=== PATIENT | female | born 1960 | race Caucasian/White ===

== ENCOUNTER 2020-04-11 06:21 | Observation (INO) ==
--- NOTE | 2020-03-28 16:04 | PAT Medication Instructions ---
Medication Instructions Date of Service March 28, 2020 Home Medications albuterol sulfate 2 puff INHALATION QID PRN biotin 10,000 mcg PO QPM cholecalciferol (vitamin D3) [Vitamin D3] 25 mcg PO QAM cyclobenzaprine [Flexeril] 10 mg PO TID diclofenac sodium 2 g TOPICAL TID duloxetine [Cymbalta] 60 mg PO QAM famotidine 20 mg PO BID gabapentin 800 mg PO TID levothyroxine 25 mcg PO QAM oxycodone 15 mg PO Q4H PRN sennosides-docusate sodium [Stool Softener-Laxative] 100 tab PO BID STOP taking 24 hours before surgery diclofenac sodium 2 g TOPICAL TID DO NOT take the morning of surgery cholecalciferol (vitamin D3) [Vitamin D3] 25 mcg PO QAM cyclobenzaprine [Flexeril] 10 mg PO TID sennosides-docusate sodium [Stool Softener-Laxative] 100 tab PO BID Take morning of surgery With a small sip of water, OTHERWISE NOTHING TO EAT OR DRINK AFTER MIDNIGHT: albuterol sulfate 2 puff INHALATION QID PRN (use if needed; please bring with you to hospital day of surgery if possible) duloxetine [Cymbalta] 60 mg PO QAM famotidine 20 mg PO BID gabapentin 800 mg PO TID levothyroxine 25 mcg PO QAM oxycodone 15 mg PO Q4H PRN (okay to take up to 4 hours prior to surgery if needed) Take evening before surgery albuterol sulfate 2 puff INHALATION QID PRN (if needed) biotin 10,000 mcg PO QPM cyclobenzaprine [Flexeril] 10 mg PO TID famotidine 20 mg PO BID gabapentin 800 mg PO TID oxycodone 15 mg PO Q4H PRN (if needed) sennosides-docusate sodium [Stool Softener-Laxative] 100 tab PO BID Other Notes If you have any questions please call us at [phone] or [phone] or [phone] or [phone]
--- NOTE | 2020-03-29 13:54 | Anesthesiology Consultation ---
Date of Service March 29, 2020 Assessment & Plan (1) Encounter for pre-operative examination: - Per assessment on 03/17: Travel screen negative. No known COVID-19 positive contacts or current COVID-19 related symptoms. Surgeon arranging preop COVID testing (scheduled 04/06; [facility]). Awaiting results. - Hx PONV: scope patch ordered for AM DOS Chart Review Chart Review: Acceptable Risk for Surgery and Patient seen in Pre Admission Testing Teaching & Discussion Pre-Anesthesia Teaching/Discussion Notes: Instructed NPO after midnight before surgery,except medications with 15 cc of water. Medication instructions p rovided according to the PAT guidelines. History Surgery Operation Date: 04/11/20 10:05 Proposed Procedures p C6-C7 Anterior Cervical Discectomy and Fusion, Spinal Cord Monitoring - Joss Kenney DO Height/Weight Height: 5 ft 8 in Weight: 101.1 kg Allergies Allergy/AdvReac Type Severity Reaction Status Date / Time oxytetracycline Allergy Unknown as child- Verified 03/29/20 13:54 [From Terramycin] unknown reaction tetracycline Allergy Unknown unknown Verified 03/29/20 13:54 Medications Home Medications Medication Instructions Recorded Confirmed Last Taken albuterol sulfate 2 puff INHALATION QID PRN 03/17/20 03/17/20 Unknown biotin 10,000 mcg PO QPM 03/17/20 03/17/20 Unknown cholecalciferol (vitamin D3) 25 mcg PO QAM 03/17/20 03/17/20 Unknown [Vitamin D3] cyclobenzaprine [Flexeril] 10 mg PO TID 03/17/20 03/17/20 Unknown diclofenac sodium 2 g TOPICAL TID 03/17/20 03/17/20 Unknown duloxetine [Cymbalta] 60 mg PO QAM 03/17/20 03/17/20 Unknown famotidine 20 mg PO BID 03/17/20 03/17/20 Unknown gabapentin 800 mg PO TID 03/17/20 03/17/20 Unknown levothyroxine 25 mcg PO QAM 03/17/20 03/17/20 Unknown oxycodone 15 mg PO Q4H PRN 03/17/20 03/17/20 Unknown sennosides-docusate sodium [Stool 100 tab PO BID 03/17/20 03/17/20 Unknown Softener-Laxative] Past Medical History Medical History (Updated 03/29/20 @ 14:19 by Vita Bach) Chronic back pain lumbar Fibromyalgia GERD (gastroesophageal reflux disease) History of bronchitis reason for inhaler rx per patient Hypothyroidism Obesity Osteoarthritis Exercise / Class Metabolic Activity II 4-5 Yardwork/Stairs/Walk up hill (one flight of stairs (no chest pain, no sob)) Past Family History Family History Mother Family history of diabetes mellitus Brother Family history of diabetes mellitus Sister Family history of diabetes mellitus Sister Family history of diabetes mellitus Past Surgical History Surgical History (Updated 03/29/20 @ 14:19 by Vita Bach) H/O elbow surgery RIGHT X3-"BENIGN" TUMOR/COMPRESSED NERVE H/O neck surgery + "SPACERS" History of ankle surgery RIGHT FOR LIGAMENT REPAIR History of dilatation and curettage X3 Past Anesthesia History No Hx of Anesthesia Complications (except PONV ) and No Family Hx of Anesthesia Complications History of PONV No Hx of Motion Sickness and History of PONV (significant improvement when scope patch used) STOP BANG Total 2 Social History Smoking Status: Former smoker Do You Dip or Chew Tobacco: No Smoking End Date: Quit 7 years ago (hx tobacco x 20 years) Hx Alcohol Use: Yes Alcohol type: wine alcohol intake frequency: a few times a month Hx Substance Use: No Review of Systems Patient denies chest pain, shortness of breath, dyspnea on exertion, fever, chills, cough, wheezing, palpitations. Physical Exam Vital Signs VITALS BP 122/82 P 81 TEMP 98.2 SP02 97%RA RESP 16 PHYSICAL Decreased cervical extension 2/2 cervicalgia/radiculopathy Full TMJ range of motion. TMD 3.5 finger breaths Mallampati Score 1 Dentition: lower denture secured with implants, upper denture Lungs: clear throughout to auscultation Cardiac: regular rate and rhythm, no murmurs noted Spine: normal Carotid arteries: negative bruit Extremities: no edema Testing Laboratory Results 03/29/20 14:14 03/29/20 14:14 PT 10.7 Seconds (9.0-12.0) 03/29/20 14:14 INR 1.0 (0.9-1.1) 03/29/20 14:14 APTT 29.9 Seconds (21.0-31.0) 03/29/20 14:14 Urine Color Yellow 03/29/20 14:14 Urine Appearance Clear (Clear) 03/29/20 14:14 Urine pH 6.5 (4.5-7.5) 03/29/20 14:14 Ur Specific [place] 1.004 (1.000-1.030) 03/29/20 14:14 Urine Protein Negative (Negative) 03/29/20 14:14 Urine Glucose (UA) Negative (Negative) 03/29/20 14:14 Urine Ketones Negative (Negative) 03/29/20 14:14 Urine Nitrite Negative (Negative) 03/29/20 14:14 Ur Leukocyte Esterase Negative (Negative) 03/29/20 14:14 Blood Type A Positive 03/29/20 14:14 Antibody Screen NEGATIVE 03/29/20 14:14 Electrocardiogram Date: 03/29/20 Findings: + NSR @ (75) Chest X-Ray Date: 03/29/20 Findings: + NAD
[2020-03-29 14:38] LABS: Basophils # (auto) 0.01 K/uL (0-0.2); Basophils % (auto) 0.2 %; Eosinophils # (auto) 0.25 K/uL (0-0.5); Eosinophils % (auto) 4.1 %; Hematocrit (blood only) 42.5 % (37-47); Hemoglobin 14.1 g/dL (12.0-16.0); Lymphocytes # (auto) 2.31 K/uL (1.2-3.4); Lymphocytes % (auto) 37.4 %; Mean Corpuscular Hemoglobin 30.3 pg (25-34); Mean Corpuscular Hgb Conc 33.2 g/dL (32-36); Mean Corpuscular Volume 91.4 fL (80-100); Mean Platelet Volume 11.5 fL (7.4-10.4); Monocytes # (auto) 0.32 K/uL (0.11-0.59); Monocytes % (auto) 5.2 %; Neutrophils # (auto) 3.28 K/uL (1.4-6.5); Neutrophils % (auto) 53.1 %; Platelet Count 208 K/uL (130-400); RDW Coefficient of Variation 13.5 % (11.5-14.5); RDW Standard Deviation 44.6 fL (36.4-46.3); Red Blood Count 4.65 M/uL (4.2-5.4); White Blood Count 6.17 K/uL (4.8-10.8)
[2020-03-29 14:44] LABS: Appearance Urine Clear (Clear); Bilirubin Urine Negative (Negative); Blood Urine Negative (Negative); Color Urine Yellow; Glucose Urine UA Negative (Negative); Ketones Urine Negative (Negative); Leukocyte Esterase Urine Negative (Negative); Nitrite Urine Negative (Negative); Protein Urine Negative (Negative); Specific Gravity Urine 1.004 (1.000-1.030); Urobilinogen Urine Negative (Negative); pH Urine 6.5 (4.5-7.5)
--- NOTE | 2020-03-29 14:47 | XRay Report ---
XR chest Pre-admission PA/Lat HISTORY: Preop. COMPARISON: None. FINDINGS: The lungs are clear. Cardiac silhouette is normal in size. No pleural effusions. No pneumot horax. IMPRESSION: No acute process. ACT 112: Negative or not required by law. Electronically signed by: Mekhi Hernandez M.D. 03/29/2020 2:46 PM
[2020-03-29 14:51] LABS: Partial Thromboplastin Ratio 1.1; Partial Thromboplastin Time 29.9 Seconds (21.0-31.0); Prothrombin Time 10.7 Seconds (9.0-12.0)
[2020-03-29 15:30] LABS: BUN Creatinine Ratio 12.2 (10-20); Calcium 9.3 mg/dl (8.5-10.1); Creatinine Clr Calc Pharmacy 87.7 ml/min; Est GFR (African American) 85.1; Est GFR (Non-African American) 73.4; Potassium 4.2 mmol/L (3.5-5.1)
--- NOTE | 2020-03-30 06:10 | Electrocardiogram Report ---
Test Reason : Blood Pressure : / mmHG Vent. Rate : 075 BPM Atrial Rate : 075 BPM P-R Int : 142 ms QRS Dur : 088 ms QT Int : 392 ms P-R-T Axes : 067 029 050 degrees QTc Int : 437 ms Normal sinus rhythm Normal ECG No previous ECGs available Confirmed by Julio C Cadet ([id number]) on 03/30/2020 6:09:53 AM Referred By: Joss Kenney Confirmed By:Julio C Cadet
[~2020-04-11 06:21] MED LIST: ACETAMINOPHEN 500 MG TAB PO SCH; CEFAZOLIN 2000MG 2,000 MG/15 ML SYR IV SCH; CeleBREX 200 MG CAP PO SCH; GABAPENTIN 600 MG DOSE PO SCH; LR 15ML/HR IV SCH
[2020-04-11] MEDS ORDERED: HYDROmorphone INJ 2 MG/ML SYR/VIAL ONE (06:52)
[2020-04-11] MEDS ORDERED: MIDAZOLAM HCL 1 MG/ML 2ML VIAL ONE (06:52)
[2020-04-11] MEDS ORDERED: fentaNYL citrate 100 MCG/2 ML VIAL ONE (06:52)
[2020-04-11] MEDS ORDERED: BACITRACIN INJ 50,000 UNIT VIAL ONE (06:57)
[2020-04-11] MEDS ORDERED: ePHEDrine sulfate 50 MG/ML AMP IV PRN (07:19)
[2020-04-11] MEDS ORDERED: ATROPINE SULFATE 0.1 MG/ML 10ML SYR IV PRN (07:19)
[2020-04-11] MEDS ORDERED: ONDANSETRON INJ 2 MG/ML 2 ML VIAL IV PRN ×2 (07:19→10:50)
[2020-04-11] MEDS ORDERED: PROMETHAZINE HCL 6.25 MG in SODIUM CHLORIDE 0.9% 50 ML IV PRN (07:19)
--- NOTE | 2020-04-11 07:34 | History & Physical Bridge Note ---
Date of Service April 11, 2020 History & Physical Bridge Note I have examined the patient, reviewed the History & Physical and in the interval since the performance of the History & Physical I have noted the following changes of clinical significance: no changes noted
--- NOTE | 2020-04-11 07:35 | History & Physical Report ---
Date of Service April 11, 2020 Assessment & Plan (1) Cervical stenosis of spinal canal: Admission and Anticipated Discharge Date Admission Date: C6-C7 anterior cervical discectomy and fusion History of Present Illness Chief Complaint: Neck and arm pain Primary Care Provider: Benny España This is a 59-year-old female who presents with chronic persistent neck and arm pain. After failing course of nonoperative care she is here for surgical intervention. Allergies Allergy/AdvReac Type Severity Reaction Status Date / Time oxytetracycline Allergy Unknown as child- Verified 03/29/20 13:54 [From Terramycin] unknown reaction tetracycline Allergy Unknown unknown Verified 03/29/20 13:54 Home Medications Home Medications Medication Instructions Recorded Confirmed Type albuterol sulfate 2 puff INHALATION QID PRN 03/17/20 04/11/20 History biotin 10,000 mcg PO QPM 03/17/20 04/11/20 History cholecalciferol (vitamin D3) 25 mcg PO QAM 03/17/20 04/11/20 History [Vitamin D3] cyclobenzaprine [Flexeril] 10 mg PO TID 03/17/20 04/11/20 History diclofenac sodium 2 g TOPICAL TID 03/17/20 04/11/20 History duloxetine [Cymbalta] 60 mg PO QAM 03/17/20 04/11/20 History famotidine 20 mg PO BID 03/17/20 04/11/20 History gabapentin 800 mg PO TID 03/17/20 04/11/20 History levothyroxine 25 mcg PO QAM 03/17/20 04/11/20 History oxycodone 15 mg PO Q4H PRN 03/17/20 04/11/20 History sennosides-docusate sodium [Stool 100 tab PO BID 03/17/20 04/11/20 History Softener-Laxative] Past Med/Surg History Medical History (Updated 04/11/20 @ 07:34 by Joss Kenney DO) Chronic back pain lumbar Fibromyalgia GERD (gastroesophageal reflux disease) History of bronchitis reason for inhaler rx per patient Hypothyroidism Obesity Osteoarthritis Surgical History H/O elbow surgery RIGHT X3-"BENIGN" TUMOR/COMPRESSED NERVE H/O neck surgery + "SPACERS" History of ankle surgery RIGHT FOR LIGAMENT REPAIR History of dilatation and curettage X3 Family History Mother Family history of diabetes mellitus Brother Family history of diabetes mellitus Sister Family history of diabetes mellitus Sister Family history of diabetes mellitus Social History Smoking Status: Former smoker Smoking End Date: Quit 7 years ago (hx tobacco x 20 years); Second Hand Exposure: Yes (FATHER SMOKED); Do You Dip or Chew Tobacco: No; Hx Alcohol Use: Yes Alcohol type: wine Hx Substance Use: No Preferred Language: Burmese Communication Ability: Effective 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 Heart regular rate and rhythm. Lungs clear to auscultation. Results & Data ([facility]) Vital Signs (Past 12 Hours) Vital Signs Temp Pulse Resp BP Pulse Ox 04/11/20 06:56 36.9 C 89 20 129/90 97
[2020-04-11] MEDS ORDERED: LARYING-O-JET KIT (LTA) ONE (08:22)
--- NOTE | 2020-04-11 09:09 | Operative Report ---
Post Operative Report Pre & Post Diagnosis Operation Date: 04/11/20 07:45 Pre-Op Diagnosis: Spinal Stenosis, Cervical Region Post-Op Diagnosis: Spinal Stenosis, Cervical Region I identified the patient and participated in the time-out.: Yes Procedure Operation Date: 04/11/20 07:45 Actual Procedures #1 anterior cervical discectomy with bilateral foraminotomies C6-C7. #2 anterior cervical arthrodesis C6-C7. #3 placement of 8 mm spiral cage filled with DBM at C6-C7. #4 application of 5 complete screws across C6-C7. Surgeon Joss Kenney, Dehydrogenation Converter Operator Mary Phoenix Estimated Blood Loss 25 Findings See Below The patient is 5 foot 8 inches tall weighing over 99 kg with a BMI in excess of 33. The patient's body habitus did create significant technical difficulty requiring additional provisions with positioning and exposure. This at least 25% increase to the operative time. Specimens None Indications This is a 59-year-old female who presents with mother diagnosis after failed extensive course of nonoperative care is here for the above-mentioned procedure. Description of Procedure Patient was met with identified informed consent obtained. Patient was then taken to the operative suite underwent ablation placed in a supine position injectable with a Reina head refrigeration engineer. All bony promises well-padded eyes inspected to ensure no external pressure placed upon up at this point the anterior cervical spine was prepped and draped in normal sterile fashion. Sharp dissection with the assistance of Bovie cartilage performed down to and exposing the anterior cervical spine at C6 and C7. Self-retaining retractors placed. And performed a complete discectomy of C6-7 out to the uncovertebral joints bilaterally. [place] distraction pins were utilized to assist in visualization. I did remove all posterior annular fibers longitudinal ligament performed bilateral foraminotomies. The endplates were then burred to subcortical bleeding bone and an 8 mm spiral cage filled with DBM tapped in position. Distracting apparatus was removed and all anterior osteophytes burred to a smooth cortical surface. For completeness was applied with the assistance of fluoroscopy. The incision was then copiously irrigated explored to ensure no damage to surrounding structures of any bleeding. 10 round EDU drain inserted. The incision was then closed with 2-0 Vicryl in the fascia and a 4 Monocryl for final skin closure. Steri-Strips sterile dressings placed. Patient would continue to PACU stable condition. Please note spinal cord monitoring was utilized at the procedure no changes noted. Audrey Phoenix was present throughout the entire surgery involved in patient positioning complex portions of the surgery and final skin closure. I attest to the content of the Intraoperative Record and any orders documented therein. Any exceptions are noted below.
[2020-04-11] MEDS ORDERED: ROCURONIUM BROMIDE 10 MG/ML 5 ML VIAL IV ONE (09:24)
[2020-04-11] MEDS ORDERED: DEXAMETHASONE SOD INJ 4 MG/ML VIAL ONE (09:24)
[2020-04-11] MEDS ORDERED: ONDANSETRON INJ 2 MG/ML 2 ML VIAL ONE (09:24)
[2020-04-11] MEDS ORDERED: PROPOFOL IV EMULSION 10 MG/ML 20 ML VIAL IV ONE (09:24)
[2020-04-11] MEDS ORDERED: SUCCINYLCHOLINE CHLORIDE 20 MG/ML 10 ML VIAL IV ONE (09:24)
[2020-04-11] MEDS: fentaNYL citrate 100 MCG/2 ML VIAL IV PRN ×2 (09:38→09:43)
--- NOTE | 2020-04-11 09:48 | Fluoroscopy Report ---
FL cervical 2-3V CLINICAL HISTORY: ACDF C6-7 COMPARISON STUDY: None FLUOROSCOPY TIME: 10 seconds. NUMBER OF FLUOROSCOPIC IMAGES: 3 FINDINGS: 3 intraprocedural fluoroscopic spot images are provided for interpretation. There is eviden ce for prior C4-5 and C5-C6 discectomies interbody fusions. There is evidence for a C6-7 anterior cer vical discectomy and fusion with an anterior metallic plate and screws. IMPRESSION: Postsurgical changes as described above. ACT 112: Negative or not required by law. Electronically signed by: Mike Camargo M.D. 04/11/2020 9:47 AM
[2020-04-11] MEDS ORDERED: NEOSTIGMINE METHYLSULFATE 1 MG/ML 10ML VIAL ONE (10:15)
[2020-04-11] MEDS ORDERED: GLYCOPYRROLATE 0.2 MG/ML VIAL ONE (10:15)
--- NOTE | 2020-04-11 10:25 | Anesthesiology Progress Note ---
Date of Service April 11, 2020 Anesthesia Post Procedure Vital Signs Vital Signs: Temp Pulse Pulse Resp BP BP Pulse Ox 04/11/20 10:20 90 16 127/87 97 04/11/20 10:10 81 16 128/88 97 04/11/20 10:00 87 18 118/75 100 04/11/20 09:50 91 H 18 134/93 99 04/11/20 09:40 91 H 18 141/86 H 99 04/11/20 09:30 90 16 126/98 98 04/11/20 09:24 36.1 C L 83 16 133/95 99 04/11/20 06:56 36.9 C 89 20 129/90 97 Pain Intensity Left Arm: Pain Intensity: 6 Posterior Head: Pain Intensity: 6 Transfer of Care Handoff Completed per policy Notes Mental Status: alert / awake / arousable Patient Amnestic to Procedure: Yes Nausea / Vomiting: adequately controlled Pain: adequately controlled Airway Patency, RR, SpO2: stable & adequate BP & HR: stable & adequate Hydration State: stable & adequate Anesthetic Complications: no major complications apparent
[2020-04-11] MEDS ORDERED: ACETAMINOPHEN 500 MG TAB PO PRN (10:50)
[2020-04-11] MEDS ORDERED: ALUMINUM/MAGNESIUM SUSP 30 ML UDC PO PRN (10:50)
[2020-04-11] MEDS ORDERED: ACETAMINOPHEN 1,000 MG/100 ML VIAL IV PRN (10:50)
[2020-04-11] MEDS ORDERED: DEXAMETHASONE SOD PHOSPHATE 8 MG in SYRINGE 0 ML IV PRN (10:50)
[2020-04-11] MEDS ORDERED: ALBUTEROL HFA 8 GM INHALER INH PRN (10:50)
[2020-04-11] MEDS ORDERED: PROMETHAZINE HCL 12.5 MG in SODIUM CHLORIDE 0.9% 50 ML IV PRN (10:50)
[2020-04-11] MEDS ORDERED: FAMOTIDINE 20 MG TAB PO PRN (10:50)
[2020-04-11] MEDS ORDERED: MAGNESIUM HYDROXIDE SUSP 30 ML UDC PO PRN (10:50)
[2020-04-11] MEDS ORDERED: RACEPINEPHRINE 2.25% NEBU SOLN 0.5 ML VIAL INH PRN (10:50)
[2020-04-11] MEDS ORDERED: HYDROmorphone INJ 0.5 MG/0.5 ML SYR IV PRN (10:50)
[2020-04-11] MEDS ORDERED: NALOXONE HCL 0.4 MG/1 ML VIAL/CARP IV PRN (10:50)
[2020-04-11] MEDS ORDERED: LORazepam 0.5 MG TAB PO PRN (10:50)
[2020-04-11] MEDS ORDERED: SOD PHOSPHATE/SOD BIPHOSPHATE ENEMA 132 ML BTL PR PRN (10:50)
[2020-04-11] MEDS ORDERED: LORazepam 0.5 MG/1 ML VIAL IV PRN (10:50)
[2020-04-11] MEDS ORDERED: TRAMADOL HCL 50 MG TABLET PO PRN (10:50)
[2020-04-11] MEDS ORDERED: DO NOT ADMINISTER FLU VACCINE PRN (10:50)
[2020-04-11] MEDS ORDERED: METOCLOPRAMIDE HCL INJ 5 MG/ML 2 ML VIAL IV PRN (10:50)
[2020-04-11] MEDS ORDERED: DO NOT ADMINISTER PNEUMOCOCCAL VACCINE PRN (10:50)
[2020-04-11] MEDS ORDERED: HYDROmorphone INJ 1 MG/ML SYRINGE IV PRN (10:50)
[2020-04-11] MEDS ORDERED: ONDANSETRON 4 MG OD TAB PO PRN (10:50)
[2020-04-11] MEDS: LACTATED RINGER'S 1,000 ML IV SCH ×2 (11:20→20:02)
[2020-04-11] MEDS: CYCLOBENZAPRINE HCL 10 MG TAB PO SCH ×2 (13:55→20:03)
[2020-04-11] MEDS: GABAPENTIN 800 MG TAB PO SCH ×2 (13:56→20:03)
[2020-04-11] MEDS: Scopolamine CHECK PATCH PLACEMENT SCH ×2 (16:59→23:50)
[2020-04-11] MEDS: CEFAZOLIN 2000MG 2,000 MG/15 ML SYR IV SCH ×2 (16:59→23:50)
[2020-04-11] MEDS: OXYCODONE HCL IR 5 MG TAB (IMMEDIATE RELEASE) PO PRN (20:01)
[2020-04-11] MEDS ORDERED: DOCUSATE SODIUM/SENNA 50/8.6MG TAB PO SCH ×2 (21:00)
[2020-04-11] MEDS: FAMOTIDINE 20 MG TAB PO SCH (21:08)
[2020-04-11] MEDS: DOCUSATE SODIUM/SENNA 50/8.6MG TAB PO SCH (21:08)
[2020-04-12] MEDS: OXYCODONE HCL IR 5 MG TAB (IMMEDIATE RELEASE) PO PRN ×2 (00:02→05:54)
[2020-04-12] MEDS ORDERED: LEVOTHYROXINE SODIUM 25 MCG TABLET PO SCH (06:30)
[2020-04-12] MEDS: Scopolamine CHECK PATCH PLACEMENT SCH (07:55)
[2020-04-12] MEDS: GABAPENTIN 800 MG TAB PO SCH (08:49)
[2020-04-12] MEDS: DOCUSATE SODIUM/SENNA 50/8.6MG TAB PO SCH (08:50)
[2020-04-12] MEDS: FAMOTIDINE 20 MG TAB PO SCH (08:50)
[2020-04-12] MEDS: CYCLOBENZAPRINE HCL 10 MG TAB PO SCH (08:51)
--- NOTE | 2020-04-12 08:53 | Discharge Summary ---
Date of Service April 12, 2020 Admission HPI Per Admitting Provider This is a 59-year-old female who presents with chronic persistent neck and arm pain. After failing course of nonoperative care she is here for surgical intervention. Principal Diagnosis Cervical spinal stenosis with radiculopathy Discharge Data Allergies Allergy/AdvReac Type Severity Reaction Status Date / Time oxytetracycline Allergy Unknown as child- Verified 03/29/20 13:54 [From Terramycin] unknown reaction tetracycline Allergy Unknown unknown Verified 03/29/20 13:54 Procedures Performed Operation Date: 04/11/20 07:45 Actual Procedures p C6-C7 Anterior Cervical Discectomy and Fusion, Spinal Cord Monitoring(Not Applicable) - Joss Kenney DO Ordered Studies 04/11/20 07:45 FL cervical 2-3V Routine FL fluoroscopy <1hr Routine Hospital Course (1) Cervical stenosis of spinal canal: Patient underwent anterior cervical discectomy and fusion tolerate so second orthopedic for possibly proposed abdomen when she was feeling much improved. Swallowing well. Excellent strength testing. Pain well controlled. EDU drain decreased properly. Subsequent discharge home. Discharge orders and instructions from the chart for further review. Total Time Total Time Spent Total Time Spent (In Minutes): 20 minutes Discharge Plan Discharge Items Patient Disposition: Home - Self-Care Reason For Visit: Spinal Stenosis, Cervical Region Discharge Diagnosis: Cervical spinal stenosis with radiculopathy Activity: As commented below Non-emergency contact: Primary Care Provider Call non-emergency contact if: you have any medication questions Follow-up/Referrals: Benny España D.O. [Primary Care Provider] - Diet: Regular Addtl Attending Provider Instructions: ACTIVITY RECOMMENDATIONS: SELF CARE INSTRUCTIONS AFTER CERVICAL FUSIONS 1. No smoking. Smoking drastically decreases the chance of a solid fusion. 2. No bending, lifting more than 5 pounds, or twisting (roll like a log when turning in bed). 3. You may shower 3 days after surgery. Thoroughly dry wound. Do not soak in the tub. 4. Cervical collar: Must be worn at all times including sleeping. You may remove the brace only to bath, eat and if you are sitting in a recliner. 5. Please walk as much as you can for exercise. Gradually increase the distance that you walk as your endurance increases. SPECIAL CARE INSTRUCTIONS: VERY IMPORTANT TO READ AND REVIEW A. Do not take any anti-inflammatory medications (i.e. Indocin, Advil, Aspirin, Naprosyn, Aleve, Motrin, etc.) as these may inhibit the chance of a solid fusion. Tylenol is okay to take. B. Your surgical incision has been closed with a cosmetic suture under the skin that will dissolve in about 6 weeks. In 14 days, you can use a pair of clean scissors and cut the suture that is left outside of the skin at the ends of your incision. C. Complications are uncommon, but please contact us if you have any signs or symptoms of: 1. wound infection (fever higher than 102.5 degrees F, redness, separation of wound, drainage, or increasing pain from the incision) 2. blood clots in legs (pain, swelling, redness and warmth in legs) 3. urinary tract infection (fever higher than 102.5 degrees, burning upon urination or increased frequency of urination) 4. nerve problems (inability to walk on your toes or heels, numbness, loss of bowel or bladder control) 5. any other symptoms that concern you. D. Please call the office at if you have any concerns or questions about your operation or recovery. MANAGING PAIN AFTER SPINAL SURGERY 1. Narcotic medication is intended for short-term use and will be provided for surgical pain. Surgical pain usually lasts for a period of 4-6 weeks. Narcotic medication includes Percocet, Vicodin, Darvocet, Tylenol #3 or Lortab. 2. Longer-term pain is more appropriately treated with non-narcotic medication such as Tylenol ES. 3. Muscle spasm is not appropriately treated with narcotics. Muscle relaxers such as Soma, Flexeril or Skelaxin can be used along with Tylenol ES. 4. Remember that we all live with some "aches and pains". This is not unusual or uncommon after an injury or as we get older. 5. We will provide appropriate medication within the normal guidelines of their prescribed use. We will also be very cautious and aware of potential abuse and extended duration of patients' medication needs. 6. Please allow 2-3 days to process refills. Prescriptions will not be mailed but must be picked up at the office. FOLLOW UP VISIT: Keep your scheduled follow-up appointment. Any questions, please call the office at . Pending Studies at Discharge: No Stand-Alone Forms: [facility], Smoking Cessation Medications and DC Order Prescriptions: Continued cyclobenzaprine [Flexeril] 10 mg Tablet 10 mg PO TID RF: 0 sennosides-docusate sodium [Stool Softener-Laxative] 8.6-50 mg Tablet 100 tab PO BID RF: 0 levothyroxine 25 mcg Tablet 25 mcg PO QAM RF: 0 oxycodone 15 mg Tablet 15 mg PO Q4H PRN (Reason: Pain) RF: 0 gabapentin 800 mg Tablet 800 mg PO TID RF: 0 biotin 10,000 mcg Capsule 10,000 mcg PO QPM RF: 0 albuterol sulfate 90 mcg/actuation Hfa Aerosol Inhaler 2 puff INHALATION QID PRN (Reason: Wheezing) RF: 0 duloxetine [Cymbalta] 60 mg Capsule,Delayed Release(Dr/Ec) 60 mg PO QAM RF: 0 cholecalciferol (vitamin D3) [Vitamin D3] 25 mcg (1,000 unit) Tablet 25 mcg PO QAM RF: 0 diclofenac sodium 1 % Gel 2 g TOPICAL TID RF: 0 famotidine 20 mg Tablet 20 mg PO BID RF: 0 Discharge Orders: Discharge Order (Routine); Ordered 04/12/20 Ordered By: Joss Kenney Admission Data Admit Date/Time: 04/11/20 09:37 Attending Provider: Joss Kenney Admit Provider: Joss Kenney Primary Care Provider: Benny España
[2020-04-12] MEDS ORDERED: DEXAMETHASONE SOD PHOSPHATE 6 MG in SYRINGE 0 ML IV ONE (09:00)
[2020-04-12] MEDS ORDERED: DULOXETINE HCL 60 MG CAP PO SCH (09:00)
[2020-04-12] MEDS: POLYETHYLENE (MIRALAX) 17 GM PACK PO SCH ×2 (09:36→13:01)
[2020-04-13] MEDS ORDERED: bisacodyL 10 MG SUPP PR PRN (09:10)
== END 2020-04-12 13:24 | disposition home or self-care (01) ==
LOC: ASU 06:21 → 3E 06:21